=== PATIENT | female | born 1945 | race Caucasian/White ===

== ENCOUNTER 2017-01-28 11:18 | Emergency (ER) | payer MEDICARE, OTHER ==
[2017-01-28] MEDS ORDERED: Ibuprofen 200 MG TAB ONE (13:02)
--- NOTE | 2017-01-28 14:03 | RAD ---
CHEST 2 VIEWS: Date: 01/28/17 HISTORY: Cough, fever. COMPARISON: None. FINDINGS: Exam is limited due to leftward patient rotation. The possibility exists of a lingular opacity, altho ugh limited. IMPRESSION: Limited due to patient rotation, though there appears to be a lingular opacity. Recommend repeat 2 vi ews with the PA chest radiograph properly positioned. POS: [facility]
== END 2017-01-28 13:15 | disposition home or self-care (01) ==
LOC: ERS 11:18
DX: J18.0 Bronchopneumonia, unspecified organism (principal); I10 Essential (primary) hypertension; F41.9 Anxiety disorder, unspecified; F17.210 Nicotine dependence, cigarettes, uncomplicated
CPT/HCPCS: 71020

== ENCOUNTER 2020-02-19 12:40 | Outpatient (CLI) | payer MEDICARE, OTHER ==
--- NOTE | 2020-02-19 14:48 | CT ---
CT THORAX WITHOUT IV CONTRAST UTILIZING PULMONARY LUNG CANCER SCREENING EVALUATION: Date: 02/19/2020 COMPARISON: Prior CT of the thorax with contrast from [facility] dated 09/29/2011. FINDINGS: No suspicious pulmonary nodule is evident. There is scattered sub-4 mm pulmonary nodules within both lungs. There are scattered calcifications involving the coronary artery and thoracic aorta. No pathologicall y enlarged lymph nodes are evident. Visualized upper abdomen reveals no definite acute abnormality. No definite acute osseous abnormality is evident. There is scattered degenerative and osteoarthritic change. Small bone island within the left aspect of C7 appears stable. IMPRESSION: Lung-RADS Category 2 - Benign. Recommend low dose annual lung cancer screening CT exam in 1 year. POS: [facility]
== END 2020-02-19 12:41 | disposition home or self-care (01) ==
LOC: BICCT 12:40
PROVIDERS: ATTEND Internal Medicine
DX: Z12.2 Encounter for screening for malignant neoplasm of respiratory organs (principal); F17.210 Nicotine dependence, cigarettes, uncomplicated
CPT/HCPCS: G0297

== ENCOUNTER 2023-04-18 09:28 | Outpatient (CLI) | payer MEDICARE, OTHER | END 2023-04-18 09:29 | disposition home or self-care (01) | LOC: BICCT 09:28 | PROVIDERS: ATTEND Internal Medicine Critical Care Medicine | DX: Z12.2 Encounter for screening for malignant neoplasm of respiratory organs (principal); F17.218 Nicotine dependence, cigarettes, with other nicotine-induced disorders; R91.8 Other nonspecific abnormal finding of lung field | CPT/HCPCS: 71271 ==